=== PATIENT | female | born 1985 | race Caucasian/White ===

== ENCOUNTER 2017-08-07 14:47 | Emergency (ER) | payer OTHER ==
[~2017-08-07] VITALS: Ht 167.6 cm; Wt 93.5 kg
[2017-08-07 14:53] VITALS: Ht 167.6 cm; Wt 93.5 kg
[2017-08-07] MEDS ORDERED: ACETAMINOPHEN 325 MG TAB PO ONE (16:00)
[2017-08-07 16:02] LABS: BASOPHILS % 0.2 % (0.0-2.0); EOSINOPHILS % 0.3 % (0.0-7.0); HEMATOCRIT 40.3 % (37.0-47.0); HEMOGLOBIN 12.8 g/dl (12.0-16.0); LYMPHOCYTES # 1.8 10^3/ul (0.8-2.9); LYMPHOCYTES % 11.8 % (15.0-51.0); MEAN CORPUSCULAR HEMOGLOBIN 25.5 pg (29.0-33.0); MEAN CORPUSCULAR HGB CONC 31.8 g/dl (32.0-37.0); MEAN CORPUSCULAR VOLUME 80.4 fl (82.0-101.0); MEAN PLATELET VOLUME 10.2 fl (7.4-10.4); MONOCYTE # 0.5 10^3/ul (0.3-0.9); MONOCYTES % 3.5 % (0.0-11.0); NEUTROPHILS % 83.8 % (39.0-77.0); PLATELET COUNT 244 10^3/UL (140-415); RED BLOOD COUNT 5.01 10^6/ul (4.20-5.40); RED CELL DISTRIBUTION WIDTH 16.6 % (11.5-14.5); WHITE BLOOD COUNT 15.4 10^3/ul (4.8-10.8)
[2017-08-07 16:15] LABS: ADD UMIC YES; UR ASCORBIC ACID NEGATIVE (NEGATIVE); UR BACTERIA FEW /HPF (NONE SEEN); UR BILIRUBIN (Dip) NEGATIVE (NEGATIVE); UR BLOOD (Dip) NEGATIVE (NEGATIVE); UR CLARITY SLIGHTLY CLOUDY (CLEAR); UR COLOR YELLOW (YELLOW); UR GLUCOSE (Dip) 1+ mg/dL (NEGATIVE); UR KETONES (Dip) 2+ mg/dL (NEGATIVE); UR LEUKOCYTE ESTERASE (Dip) NEGATIVE Leu/ul (NEGATIVE); UR MUCUS FEW /HPF (NONE SEEN); UR NITRITE (Dip) NEGATIVE (NEGATIVE); UR RBC 2 /HPF (0-5); UR SPECIFIC GRAVITY (Dip) 1.023 (1.003-1.030); UR SQUAMOUS EPITHELIAL CELL MODERATE /HPF (FEW); UR TOTAL PROTEIN (Dip) 3+ mg/dl (NEGATIVE); UR UROBILINOGEN (Dip) NEGATIVE (NEGATIVE)
--- NOTE | 2017-08-07 16:27 | RADRPT ---
PROCEDURE: OBSTETRICAL ULTRASOUND WITH ENDOVAGINAL IMAGES CLINICAL INDICATION: lower abdominal pain TECHNIQUE: Multiple sonographic images of the pelvis were obtained utilizing a transabdominal and endovaginal technique. The images were reviewed on a PACS workstation. COMPARISON: None. LMP: 04/17/1970 FINDINGS: The uterus appears to be bicornuate. There is a 5.8 cm subserosal fundal fibroid in the right horn of the uterus. There is a 3.8 cm anterior subserosal fibroid at the level of the mid body. There is a 3.3 cm subserosal fundal fibroid in the left horn of the uterus. There is a single live intrauterine in the right horn of the uterus with heart rate of 166 beats per minute and crown-rump length of 10.33 cm which is consistent with a gestational age of 16 weeks, 2 days . The estimated date of delivery by ultrasound is 01/20/2018 . The estimated gestational age by LMP is 16 weeks, 0 days . The estimated date of delivery by LMP is 01/22/2018 . The placenta is fundal in location. There is no evidence of a placenta previa or abruption. The right ovary measures 5.5 x 4.1 x 2.5 cm. The left ovary is not identified. There is normal vascu lar flow in the right ovary. No significant ovarian lesions are seen. No significant pelvic free fluid is identified. IMPRESSION: Single live intrauterine consistent with a gestational age of 16 weeks, 2 days . The estimated date of delivery is 01/20/2018 . Dating by ultrasound is within 2 days of dating by LMP. A possible bicornuate uterus is identified with the gestation in the right horn. Fundal placenta without evidence of placenta previa or abruption. Nonvisualization of the left ovary. RPTAT: EE Physician Michelle Date Time Electronically viewed and signed by Physician Michelle on 08/07/2017 16:27 /
[2017-08-07 20:39] VITALS: BP 134/85; PULSE 102; RESP 18; TEMP 99.3
--- NOTE | 2017-08-07 20:56 | ERD ---
ER Documentation Chief Complaint Date/Time DATE: 08/07/17 TIME: 20:48 Chief Complaint RIGHT LOWER QUADRANT PAIN RADIATING TO BACK,16 WEEKS ,NO BLEEDING HPI 32-year-old female patient who is a with a past medical history of type 2 diabetes, fibroids, bicornate uterus, 12 years of remission from non-Hodgkin's lymphoma presents the ED complaining of right lower quadrant abdominal pain last night. Patient reports that it feels intense and comes in waves. Describes the pain as sharp and rates the pain a 10 out of 10. States that it does radiate to her right-sided back. Reports that her last menstruation was on April 17, 2017. States that she is taking insulin, calcium, metformin and iron. That when she did urinate, she had a yellow clot. Denies any vaginal bleeding, vaginal discharge, dysuria, urgency, frequency, hematuria. ROS All systems reviewed and are negative except as per history of present illness. Medications Home Meds Reported Medications Insulin Regular, Human (Humulin R) 100 Unit/1 Ml Vial, 100 UNIT IJ, VIAL 08/08/17 Insulin NPH Human Isophane (Humulin N) 100 Unit/1 Ml Vial, 100 UNIT SQ, VIAL 08/08/17 Insulin NPH Human Isophane (Humulin N) 100 Unit/1 Ml Vial, 100 UNIT SQ, VIAL 08/08/17 Allergies Allergies: Coded Allergies: No Known Allergy (Unverified , 08/07/17) PMhx/Soc Medical and Surgical Hx: pt denies Medical Hx, pt denies Surgical Hx History of Surgery: No Anesthesia Reaction: No Hx Neurological Disorder: No Hx Respiratory Disorders: No Hx Cardiac Disorders: No Hx Psychiatric Problems: No Hx Miscellaneous Medical Probl: Yes (Non-Hodgkins Lymphoma, Diabetes) Physical Exam Vitals Vital Signs Date Time Temp Pulse Resp B/P Pulse Ox O2 Delivery O2 Flow Rate FiO2 08/07/17 20:39 99.3 102 18 134/85 98 Room Air 08/07/17 14:53 99.6 99 18 138/93 98 Physical Exam Const: [id number], well-nourished. In no acute distress. Smiling and playful. Head: Atraumatic, normocephalic Eyes: Normal Conjunctiva without injection. No purulent discharge. PERRL. EOMI ENT: Normal external ear. Ear canal without erythema. Tympanic membrane pearly duncan without effusion or bulging. Nasal canal clear with normal turbinates. Moist oropharynx without tonsillar exudates. Non-erythematous pharynx. Uvula midline. No drooling. No trismus. Neck: Full range of motion. No meningismus. No cervical lymphadenopathy. Resp: Clear to auscultation bilaterally. No wheezing, rhonchi, rales, or crackles. No accessory muscle use. No retractions. No stridor at rest. Cardio: Regular rate and rhythm. No murmurs, rubs or gallops. Abd: Soft, non tender, non distended. Normal bowel sounds. No palpable masses. Skin: No petechiae or rashes Ext: No cyanosis, or edema. Neur: Awake and alert. Psych: Normal Mood and Affect Result Diagram: 08/07/17 1550 08/07/17 1530 Results 24 hrs Laboratory Tests Test 08/07/17 15:30 08/07/17 15:45 08/07/17 15:50 08/07/17 20:46 Sodium Level 137mmol/L Potassium Level 4.4mmol/L Chloride Level 108mmol/L Carbon Dioxide Level 19mmol/L Anion Gap 14 Blood Urea Nitrogen 5mg/dl Creatinine 0.54mg/dl Glucose Level 116mg/dl Calcium Level 9.1mg/dl Total Bilirubin 0.4mg/dl Direct Bilirubin 0.00mg/dl Indirect Bilirubin 0.4mg/dl Aspartate Amino Transf (AST/SGOT) 62IU/L Alanine Aminotransferase (ALT/SGPT) 18IU/L Alkaline Phosphatase 84IU/L Total Protein 7.2g/dl Albumin 3.7g/dl Globulin 3.50g/dl Albumin/Globulin Ratio 1.05 Urine Color YELLOW Urine Clarity SLIGHTLY CLOUDY Urine pH 5.0 Urine Specific [place] 1.023 Urine Ketones 2+mg/dL Urine Nitrite NEGATIVEmg/dL Urine Bilirubin NEGATIVEmg/dL Urine Urobilinogen NEGATIVEmg/dL Urine Leukocyte Esterase NEGATIVELeu/ul Urine Microscopic RBC 2/HPF Urine Microscopic WBC 5/HPF Urine Squamous Epithelial Cells MODERATE/HPF Urine Bacteria FEW/HPF Urine Mucus FEW/HPF Urine Hemoglobin NEGATIVEmg/dL Urine Glucose 1+mg/dL Urine Total Protein 3+mg/dl White Blood Count 15.410^3/ul Red Blood Count 5.0110^6/ul Hemoglobin 12.8g/dl Hematocrit 40.3% Mean Corpuscular Volume 80.4fl Mean Corpuscular Hemoglobin 25.5pg Mean Corpuscular Hemoglobin Concent 31.8g/dl Red Cell Distribution Width 16.6% Platelet Count 25801^3/UL Mean Platelet Volume 10.2fl Neutrophils % 83.8% Lymphocytes % 11.8% Monocytes % 3.5% Eosinophils % 0.3% Basophils % 0.2% Nucleated Red Blood Cells % 0.0/100WBC Neutrophils # (Manual) 12.910^3/ul Lymphocytes # 1.810^3/ul Monocytes # 0.510^3/ul Eosinophils # 0.010^3/ul Basophils # 0.010^3/ul Nucleated Red Blood Cells # 0.010^3/ul Beta HCG, Quantitative 17757.0mIU/ml Bedside Glucose 122mg/dL Current Medications Medications (Trade) Dose Ordered Sig/Kristofer Route PRN Reason Start Time Stop Time Status Last Admin Dose Admin Acetaminophen (Tylenol Tab) 650 mg ONCE ONCE PO 08/07/17 16:00 08/07/17 16:01 DC 08/07/17 15:40 Procedures/MDM This is a 32-year-old female patient with a past medical history of type 2 diabetes, fibroids, bicornuate uterus, 12 years of remission from non-Hodgkin's lymphoma presents to the ED complaining of right lower quadrant abdominal pain. Patient is afebrile nontoxic appearing. Patient has normal vital signs. An ultrasound, beta-hCG, CBC, type and RH, UA was ordered to evaluate patient. CBC: Leukocytosis of 15.4. No anemia CMP: No e/o alkalosis, acidosis, renal disease Urine: No elevation in nitrites, leukocyte esterase, hematuria. No evidence of UTI Rh: O positive No indication for Rhogam at this time. beta Hc Accucheck: 122 PROCEDURE: OBSTETRICAL ULTRASOUND WITH ENDOVAGINAL IMAGES CLINICAL INDICATION: lower abdominal pain TECHNIQUE: Multiple sonographic images of the pelvis were obtained utilizing a transabdominal and endovaginal technique. The images were reviewed on a PACS workstation. COMPARISON: None. LMP: 04/17/1970 FINDINGS: The uterus appears to be bicornuate. There is a 5.8 cm subserosal fundal fibroid in the right horn of the uterus. There is a 3.8 cm anterior subserosal fibroid at the level of the mid body. There is a 3.3 cm subserosal fundal fibroid in the left horn of the uterus. There is a single live intrauterine in the right horn of the uterus with heart rate of 166 beats per minute and crown-rump length of 10.33 cm which is consistent with a gestational age of 16 weeks, 2 days . The estimated date of delivery by ultrasound is 01/20/2018 . The estimated gestational age by LMP is 16 weeks, 0 days . The estimated date of delivery by LMP is 01/22/2018 . The placenta is fundal in location. There is no evidence of a placenta previa or abruption. The right ovary measures 5.5 x 4.1 x 2.5 cm. The left ovary is not identified. There is normal vascular flow in the right ovary. No significant ovarian lesions are seen. No significant pelvic free fluid is identified. IMPRESSION: Single live intrauterine consistent with a gestational age of 16 weeks , 2 days . The estimated date of delivery is 01/20/2018 . Dating by ultrasound is within 2 days of dating by LMP. A possible bicornuate uterus is identified with the gestation in the right horn. Fundal placenta without evidence of placenta previa or abruption. Nonvisualization of the left ovary. PROCEDURE: MRI ABDOMEN WITHOUT CONTRAST CLINICAL INDICATION: 32 years of age, female , right lower quadrant pain. 4 months . . COMPARISON: First trimester ultrasound August 07, 2017 TECHNIQUE: An MRI study was performed without intravenous contrast. The following sequences were performed: Axial and coronal SS-T2 FSE, axial SS-T2FSE with fat suppression, axial T1 gradient echo in and out of phase, axial DWI, and axial T1 gradient echo with fat suppression. FINDINGS: Lung bases: Unremarkable Liver: No focal liver lesions are identified. Evaluation for steatosis is limited for technical reasons. Gall Bladder: There is a 2.4 cm gallstone. Negative for evidence of acute cholecystitis. Bile Ducts: Negative for intrahepatic or extrahepatic biliary duct dilatation. Pancreas: Normal noncontrast appearance. Spleen: Normal with an accessory spleen. Adrenal glands: 1.1 cm right adrenal nodule is likely benign. Left adrenal gland is normal. Kidneys: Right kidney is normal size and signal intensity without hydronephrosis. There is minimal perinephric fat stranding. Left kidney is absent. Vasculature: Aorta is normal caliber. Lymph nodes: No abnormal enlarged lymph nodes. Bowel: Bowel loops are decompressed and appear normal. There is a non-inflamed appendix in the right lower quadrant. Peritoneal space: Small volume free pelvic fluid. Pelvic organs: Evaluation of the pelvis is limited. There is a gravid uterus with an intrauterine . 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 The is situated in the right horn with an anterior placenta. The left horn is identified in the left lower quadrant. There is a 5.4 cm exophytic mass arising from the anterior wall of the right uterine horn and there is a 4.6 cm exophytic mass arising from the left uterine horn that likely represent pedunculated fibroids. They are both isointense to myometrium without evidence of internal hemorrhage. Ovaries appear normal. There is a small amount of fluid around the left ovary. Abdominal wall: Unremarkable Musculoskeletal: No suspicious abnormality. IMPRESSION: Normal appendix. Negative for evidence of appendicitis. Nonspecific right perinephric fat stranding without right hydronephrosis. Recommend correlation with urinalysis to rule out urinary tract infection. Left renal agenesis. Cholelithiasis without evidence of acute cholecystitis or biliary obstruction. Gravid uterus is incompletely evaluated. 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 The is situated in the right horn. There are suspected pedunculated fibroids arising from both horns of the uterus that are normal signal intensity without internal hemorrhage. Small volume free pelvic fluid. Findings were discussed with Brooke GALLOWAY by Dr. Elizabeth Chu on August 07, 2017 at 09:15 p.m.. Patient is 16 weeks with a single IUP seen on ultrasound. No appendicitis noted. After the workup was done here in the ED, patient reported that she was also seen at [facility] and was diagnosed with an open cervix with a bulging amniotic sac through the cervical canal. This case was discussed with the laborist on-call, Dr. Velez who agreed to admit the patient at this time. She stated that patient should be seen at the OB triage. Patient will be discharged here in the ED and our nursing staff will assist the patient to OB triage for further evaluation and treatment by Dr. Velez for impending . Departure Diagnosis: Primary Impression: Right lower quadrant abdominal pain Additional Impression: Incompetent cervix Condition: Stable Patient Instructions: : Your Second Trimester Changes, Adapting to : Second Trimester, Monitoring Your Blood Sugar During Referrals: [facility] YOU HAVE RECEIVED A MEDICAL SCREENING EXAM AND THE RESULTS INDICATE THAT YOU DO NOT HAVE A CONDITION THAT REQUIRES URGENT TREATMENT IN THE EMERGENCY DEPARTMENT. FURTHER EVALUATION AND TREATMENT OF YOUR CONDITION CAN WAIT UNTIL YOU ARE SEEN IN YOUR DOCTORS OFFICE WITHIN THE NEXT 1-2 DAYS. IT IS YOUR RESPONSIBILITY TO MAKE AN APPOINTMENT FOR FOLOW-UP CARE. IF YOU HAVE A PRIMARY DOCTOR --you should call your primary doctor and schedule an appointment IF YOU DO NOT HAVE A PRIMARY DOCTOR YOU CAN CALL OUR PHYSICIAN REFERRAL HOTLINE AT IF YOU CAN NOT AFFORD TO SEE A PHYSICIAN YOU CAN CHOSE FROM THE FOLLOWING [facility] [address] [facility] [address] [facility] [facility] [address] [facility] [address] [facility] [address] [facility] [address] [facility]. [facility] YOU HAVE RECEIVED A MEDICAL SCREENING EXAM AND THE RESULTS INDICATE THAT YOU DO NOT HAVE A CONDITION THAT REQUIRES URGENT TREATMENT IN THE EMERGENCY DEPARTMENT. FURTHER EVALUATION AND TREATMENT OF YOUR CONDITION CAN WAIT UNTIL YOU ARE SEEN IN YOUR DOCTORS OFFICE WITHIN THE NEXT 1-2 DAYS. IT IS YOUR RESPONSIBILITY TO MAKE AN APPOINTMENT FOR FOLOW-UP CARE. IF YOU HAVE A PRIMARY DOCTOR --you should call your primary doctor and schedule and appointment IF YOU DO NOT HAVE A PRIMARY DOCTOR YOU CAN CALL OUR PHYSICIAN REFERRAL HOTLINE AT . IF YOU CAN NOT AFFORD TO SEE A PHYSICIAN YOU CAN CHOSE FROM THE FOLLOWING [facility] INSTITUTIONS: [facility] [address] [place] [address] [facility] [address] [place] [address] [facility] [address] [place] [address] [facility] URGENT CARE/SPECIALTIES [employer] [place] [address] [facility] [address] [place] [address] OFFICE FAX , [address] [place] [address] [address] CAO, [place] [address] [place] [address] DR PATEL, [facility] [address], [address], [place] [address] [address] ADAMS, [facility] [address] [place] [address] [facility] [address] [place] [address] [phone] [facility] [address] - [address] HERRERA, LILA [address], [facility] [address] [address] SAM, [place] [address] [facility]. [address], [place] [address] [address] LOPEZ, [facility] [address] [place], [place] [id number] [facility] Hours: 8:00 am - 5:00 pm Additional Instructions: You have found to have an open cervix at [facility]. You will be discharged from the ER and taken to follow up in the OB Triage unit for further evaluation and treatment by the laborist. Return to this facility if you are not improving as expected - fever, nausea, vomiting, diarrhea, vaginal bleeding, weakness, etc. BROOKE VALDERRAMA PA-C Aug 07, 2017 20:56
[2017-08-07 21:05] LABS: ALBUMIN 3.7 g/dl (3.3-4.9); ALBUMIN/GLOBULIN RATIO 1.05; BILIRUBIN,INDIRECT 0.4 mg/dl (0-1.1); BILIRUBIN,TOTAL 0.4 mg/dl (0.2-1.3); CALCIUM 9.1 mg/dl (8.4-10.2); CREATININE 0.54 mg/dl (0.44-1.00); POTASSIUM 4.4 mmol/L (3.5-5.1); TOTAL PROTEIN 7.2 g/dl (6.1-8.1)
--- NOTE | 2017-08-07 21:19 | RADRPT ---
PROCEDURE: MRI ABDOMEN WITHOUT CONTRAST CLINICAL INDICATION: 32 years of age, female , right lower quadrant pain. 4 months . . COMPARISON: First trimester ultrasound August 07, 2017 TECHNIQUE: An MRI study was performed without intravenous contrast. The following sequences were per formed: Axial and coronal SS-T2 FSE, axial SS-T2FSE with fat suppression, axial T1 gradient echo in and out of phase, axial DWI, and axial T1 gradient echo with fat suppression. FINDINGS: Lung bases: Unremarkable Liver: No focal liver lesions are identified. Evaluation for steatosis is limited for technical reas ons. Gall Bladder: There is a 2.4 cm gallstone. Negative for evidence of acute cholecystitis. Bile Ducts: Negative for intrahepatic or extrahepatic biliary duct dilatation. Pancreas: Normal noncontrast appearance. Spleen: Normal with an accessory spleen. Adrenal glands: 1.1 cm right adrenal nodule is likely benign. Left adrenal gland is normal. Kidneys: Right kidney is normal size and signal intensity without hydronephrosis. There is minimal perinephric fat stranding. Left kidney is absent. Vasculature: Aorta is normal caliber. Lymph nodes: No abnormal enlarged lymph nodes. Bowel: Bowel loops are decompressed and appear normal. There is a non-inflamed appendix in the righ t lower quadrant. Peritoneal space: Small volume free pelvic fluid. Pelvic organs: Evaluation of the pelvis is limited. There is a gravid uterus with an intrauterine pr egnancy. 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 The is situated in the right horn with an anterior placenta. The left horn is identi fied in the left lower quadrant. There is a 5.4 cm exophytic mass arising from the anterior wall of the right uterine horn and there is a 4.6 cm exophytic mass arising from the left uterine horn that likely represent pedunculated fibroids. They are both isointense to myometrium without evidence of i nternal hemorrhage. Ovaries appear normal. There is a small amount of fluid around the left ovary. Abdominal wall: Unremarkable Musculoskeletal: No suspicious abnormality. IMPRESSION: Normal appendix. Negative for evidence of appendicitis. Nonspecific right perinephric fat stranding without right hydronephrosis. Recommend correlation with urinalysis to rule out urinary tract infection. Left renal agenesis. Cholelithiasis without evidence of acute cholecystitis or biliary obstruction. Gravid uterus is incompletely evaluated. There is a uterine anomaly that either represents uterine d idelphys or a complete bicornuate uterus. The is situated in the right horn. There are maryann pected pedunculated fibroids arising from both horns of the uterus that are normal signal intensity without internal hemorrhage. Small volume free pelvic fluid. Findings were discussed with Brooke GALLOWAY by Dr. Elizabeth Chu on August 07, 2017 at 09:15 p.m.. RPTAT: HCTS Benson Chu Physician Date Time Electronically viewed and signed by Benson Chu Physician on 08/07/2017 21:18 CS/
[2017-08-08] MEDS ORDERED: INSU100V3 IJ (00:31)
[2017-08-08] MEDS ORDERED: NPH,100V SQ (00:31)
== END 2017-08-07 21:08 | disposition home or self-care (01) ==
LOC: FTE 14:47
DX: O34.32 Maternal care for cervical incompetence, second trimester (principal); R10.31 Right lower quadrant pain; O24.112 Pre-existing type 2 diabetes mellitus, in pregnancy, second trimester; E11.9 Type 2 diabetes mellitus without complications; R10.2 Pelvic and perineal pain; Z3A.16 16 weeks gestation of pregnancy; Z79.4 Long term (current) use of insulin; Z79.84 Long term (current) use of oral hypoglycemic drugs
CPT/HCPCS: 36415; 74181; 76805; 80053; 81001; 82962; 84702; 85025; 86900; 86901; Z7502; Z7610

== ENCOUNTER 2017-08-07 21:18 | Inpatient (IN) | payer OTHER ==
[~2017-08-07] VITALS: Ht 160 cm; Wt 93.0 kg
[2017-08-07 22:30] VITALS: Ht 160 cm; Wt 93.0 kg
[2017-08-07] MEDS ORDERED: HYDROCODONE/APAP (5/325) TAB PO PRN (23:00)
[2017-08-07] MEDS ORDERED: MISOPROSTOL 200 MCG TAB PR PRN (23:00)
[2017-08-07] MEDS ORDERED: OXYTOCIN 30 UNITS/LR 500 ML IV PRN (23:00)
[2017-08-07] MEDS ORDERED: LACTATED RINGER'S 1,000 ML IV PRN ×2 (23:00)
[2017-08-07] MEDS ORDERED: LIDOCAINE 1% (MPF) 30 ML INJ INJ PRN (23:00)
[2017-08-07] MEDS ORDERED: ACETAMINOPHEN 325 MG TAB PO PRN (23:00)
[2017-08-07] MEDS ORDERED: METHYLERGONOVINE 0.2 MG INJ IM PRN (23:00)
[2017-08-07] MEDS ORDERED: CARBOPROST 250 MCG INJ IM PRN (23:00)
[2017-08-07] MEDS ORDERED: IBUPROFEN 600 MG TAB PO PRN (23:00)
[2017-08-08] MEDS ORDERED: INSU100V3 IJ (00:31)
[2017-08-08] MEDS ORDERED: NPH,100V SQ (00:31)
[2017-08-08 01:29] LABS: INR 0.97; PROTIME 12.9 Sec (12.2-14.2)
[2017-08-08 01:30] LABS: PARTIAL THROMBOPLASTIN TIME 31.2 Sec (25.0-35.0)
[2017-08-08] MEDS ORDERED: BUTORPHANOL 2 MG INJ IV PRN (02:00)
[2017-08-08] MEDS ORDERED: OXYTOCIN 30 UNITS/LR 500 ML IV SCH ×2 (02:50→03:30)
[2017-08-08] MEDS ORDERED: DIAZEPAM 5 MG/ML SYG IV ONE (03:30)
--- NOTE | 2017-08-08 04:54 | HP ---
Date/Time of Note Date/Time of Note DATE: 08/08/17 TIME: 04:31 OB - History Hx of Present Free Text/Dictation 32 y.o primigravida EDC 01/22/18 at 16w1d ,was bought to triage via ER where she was evaluated for impending . Ealrier the day ,she was at [facility] where she had U/S revealed 16w live with cervix open ,bulging amniotic sac though the cervical canal.sent home But later night she came to [facility] with modrate pelvic pain especially on RLQ , U/ S still shows live at 16w2d with FHT 166 , poss bicornuate uterus with the gestation on rt horn with multiple subserosal fibroids. admitted for further care for impending . Estimated Due Date: Jan 22, 2018 : 1 Para: 0 Spontaneous : 0 Therapeutic : 0 Care: Limited Care Ultrasounds: No ultrasounds, Abnormal US findings, Other Obstetrical Complications: Other Medical Complications: Genitourinary, Other (non hodgkin's lymphoma , IDDM) Past Family/Social History * Past Medical, Surgical, Family and Obstetric Histories reviewed from chart. Blood Type: Unknown Rubella: unknown RPR/VDRL: Unknown GBS Status: Unknown HBsAG: Unknown OB Admission Exam Physical Exam HEENT: WNL Heart: Rhythm Normal Lungs: Clear, Equal Abdomen: WNL Extremities: Edema Reflexes: Normal Cervical Dilatation: other Effacement: Other Station: Other Membranes: Intact Amniotic Fluid: Unevaluable Intensity: Moderate Last 72 hourBlood Glucose Bedside Glucose - 72 Hours Test 08/08/17 02:42 Bedside Glucose 136mg/dL (70-220) Last 72 hours Lab Results CBC & BMP 08/08/17 00:59 OB Assessment/Plan Other Assessment: IUP 16w2d impending miscarriage Plan: Expectant Management VIKASH VALLEJO MD Aug 08, 2017 04:47
--- NOTE | 2017-08-08 05:03 | LDN ---
Date/Time of Note Date/Time of Note DATE: 08/08/17 TIME: 04:54 Delivery Summary 32 y.o primigravida with bicornuated uterus,multiple fibroids expelled fetus in amniotic sac which was intact with placenta together male , 390gm no movement no respiration no FHT no tone color blue Weeks of Gestation 16w2d Placenta Delivered: Spontaneously Meconium: none Episiotomy: No Estimated blood loss: 100 Sponge & Needle done & correct: Yes All needle counts correct: Yes Any foreign bodies felt in the: No Problems: Infant Delivery Information Sex Sex: male Apgars 1 Minute: 0 5 Minute: 0 10 Minute: 0 Suctioning Nose & mouth suctioned at bigg: No Delee suction performed: No Umbilical Cord Cord presentations: no nuchal cord Cord Blood was obtained: No VIKASH VALLEJO MD Aug 08, 2017 05:03
[2017-08-08] MEDS ORDERED: MISOPROSTOL 200 MCG TAB PR PRN (07:00)
[2017-08-08] MEDS ORDERED: CARBOPROST 250 MCG INJ IM PRN (07:00)
[2017-08-08] MEDS ORDERED: OXYCODONE/ASPIRIN (4.88/325) TAB PO PRN (07:00)
[2017-08-08] MEDS ORDERED: NACL 0.9% 3 ML SYG IV SCH (07:00)
[2017-08-08] MEDS ORDERED: METHYLERGONOVINE 0.2 MG INJ IM PRN (07:00)
[2017-08-08] MEDS ORDERED: ZOLPIDEM 5 MG TAB PO PRN (07:00)
[2017-08-08] MEDS ORDERED: OXYTOCIN 30 UNITS/LR 500 ML IV PRN (07:00)
[2017-08-08] MEDS: OXYCODONE/ASPIRIN (4.88/325) TAB PO PRN ×2 (07:10→11:58)
[2017-08-08 08:00] VITALS: BP 101/68; PULSE 97; RESP 18
--- NOTE | 2017-08-08 08:26 | PN ---
Date/Time of Note Date/Time of Note DATE: 08/08/17 TIME: 08:25 OB Subjective Subjective Subjective Doing well.Resting in bed having breakfast. OB Objective Objective Objective Afebrile. Glucose 120.Normal lochia HEENT: WNL Heart: Rhythm Normal Lungs: Clear Abdomen: WNL Extremities: Normal BJ BOONE MD Aug 08, 2017 08:26
[2017-08-08 11:46] LABS: BASOPHILS % 0.3 % (0.0-2.0); EOSINOPHILS # 0.1 10^3/ul (0.0-0.5); EOSINOPHILS % 0.5 % (0.0-7.0); HEMATOCRIT 37.5 % (37.0-47.0); HEMOGLOBIN 11.6 g/dl (12.0-16.0); LYMPHOCYTES # 1.7 10^3/ul (0.8-2.9); LYMPHOCYTES % 11.6 % (15.0-51.0); MEAN CORPUSCULAR HEMOGLOBIN 25.2 pg (29.0-33.0); MEAN CORPUSCULAR HGB CONC 30.9 g/dl (32.0-37.0); MEAN CORPUSCULAR VOLUME 81.5 fl (82.0-101.0); MEAN PLATELET VOLUME 10.7 fl (7.4-10.4); MONOCYTE # 0.6 10^3/ul (0.3-0.9); MONOCYTES % 4.1 % (0.0-11.0); NEUTROPHILS % 83.2 % (39.0-77.0); PLATELET COUNT 235 10^3/UL (140-415); RED CELL DISTRIBUTION WIDTH 17.2 % (11.5-14.5); WHITE BLOOD COUNT 14.3 10^3/ul (4.8-10.8)
[2017-08-08] MEDS: SENNA/DOCUSATE NA (8.6MG/50MG) TAB PO SCH ×2 (11:58→20:58)
[2017-08-08] MEDS: IBUPROFEN 600 MG TAB PO SCH ×3 (12:00→23:41)
[2017-08-08 12:10] VITALS: BP 121/66; PULSE 92; RESP 18
[2017-08-08] MEDS ORDERED: GLUCOSE GEL 15 GRAM TUBE BUCCAL PRN (15:00)
[2017-08-08] MEDS ORDERED: GLUCOSE GEL 15 GRAM TUBE PO PRN ×2 (15:00)
[2017-08-08] MEDS ORDERED: DEXTROSE 50% 50 ML SYRINGE IV PRN ×2 (15:00)
[2017-08-08] MEDS ORDERED: GLUCAGON 1 MG INJ IM PRN (15:00)
[2017-08-08 17:20] VITALS: BP 109/59; PULSE 90; RESP 18
[2017-08-08] MEDS: metFORMIN (XR) 500 MG TAB PO SCH (19:06)
[2017-08-08] MEDS: INSULIN ASPART [NOVOLOG] 3 ML PEN SC SCH ×2 (19:09→21:00)
[2017-08-08 19:52] VITALS: BP 129/78; PULSE 93; RESP 18
[2017-08-08 23:30] VITALS: BP 117/74; PULSE 85; RESP 16
[2017-08-09] MEDS ORDERED: ACCU-CHEK XX SCH ×2 (02:00)
[2017-08-09 03:40] VITALS: BP 120/71; PULSE 84; RESP 16
[2017-08-09] MEDS: OXYCODONE/ASPIRIN (4.88/325) TAB PO PRN (04:38)
[2017-08-09] MEDS: IBUPROFEN 600 MG TAB PO SCH ×2 (06:00→11:48)
[2017-08-09 07:10] LABS: BASOPHILS % 0.4 % (0.0-2.0); EOSINOPHILS # 0.3 10^3/ul (0.0-0.5); EOSINOPHILS % 2.8 % (0.0-7.0); HEMATOCRIT 37.1 % (37.0-47.0); HEMOGLOBIN 11.5 g/dl (12.0-16.0); LYMPHOCYTES # 1.6 10^3/ul (0.8-2.9); LYMPHOCYTES % 16.3 % (15.0-51.0); MEAN CORPUSCULAR HEMOGLOBIN 25.1 pg (29.0-33.0); MEAN PLATELET VOLUME 10.4 fl (7.4-10.4); MONOCYTE # 0.5 10^3/ul (0.3-0.9); MONOCYTES % 5.3 % (0.0-11.0); NEUTROPHILS % 74.7 % (39.0-77.0); PLATELET COUNT 218 10^3/UL (140-415); RED BLOOD COUNT 4.58 10^6/ul (4.20-5.40); RED CELL DISTRIBUTION WIDTH 16.7 % (11.5-14.5); WHITE BLOOD COUNT 9.7 10^3/ul (4.8-10.8)
[2017-08-09] MEDS: INSULIN ASPART [NOVOLOG] 3 ML PEN SC SCH ×2 (07:35→11:30)
[2017-08-09] MEDS: metFORMIN (XR) 500 MG TAB PO SCH (07:53)
[2017-08-09 07:56] VITALS: BP 119/73; PULSE 82; RESP 16
[2017-08-09] MEDS: SENNA/DOCUSATE NA (8.6MG/50MG) TAB PO SCH (09:00)
[2017-08-09 09:32] LABS: RUBELLA ANTIBODY - IGG 1.81 index
--- NOTE | 2017-08-09 14:21 | PD.PPDC ---
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
--- NOTE | 2017-08-09 14:43 | DS ---
Date/Time of Note Date/Time of Note DATE: 08/09/17 TIME: 14:41 Obstetrical Discharge Record Final Diagnosis Final Diagnosis: delivered Other Final Diagnosis s/p second trimester miscarriage aat 16weeks Condition on Discharge Physical Assessment Last Vitals: vss afebrile Voiding: Yes Bowel Movement: Yes Breast: Soft, non-tender Fundus: Firm Calf Tenderness: No Patient Condition: Stable VIKASH VALLEJO MD Aug 09, 2017 14:43
[2017-08-10] MEDS ORDERED: DIPHTH/TET/ACEL PERTUSS (ADULT) 0.5 ML VIAL IM* ONE (09:00)
== END 2017-08-09 15:06 | disposition home or self-care (01) | DRG 775 ==
LOC: OBT 21:18 → L-D 21:19 → OBT 22:30 → L-D 22:30
PROVIDERS: ADMIT Specialist; ATTEND Specialist
PROC: 10E0XZZ Delivery of Products of Conception, External Approach (ICD-10-PCS; principal; 2017-08-08)
DX: O60.13X0 Preterm labor second trimester with preterm delivery third trimester, not applicable or unspecified (principal); O34.12 Maternal care for benign tumor of corpus uteri, second trimester; Z3A.16 16 weeks gestation of pregnancy; Z37.1 Single stillbirth
CPT/HCPCS: 82947; 82962; 85025; 85610; 85730; 86592; 86762; 86850; 86900; 86901; 87340; 88305; G0463; J0595; J1815; J2590; J3360

== ENCOUNTER 2019-02-18 09:49 | Day surgery (SDC) | payer OTHER ==
[2019-02-16 16:36] VITALS: Ht 167.6 cm; Wt 86.8 kg
[2019-02-18] VITALS (14 sets, daily range): BP systolic 119–141; BP diastolic 70–95; PULSE 88–102; RESP 12–18
[~2019-02-18] VITALS: Ht 167.6 cm; Wt 86.8 kg
[~2019-02-18 09:49] MED LIST: BENA10TA4 PO; CEFAZOLIN 2 GM/50 ML (PMX) 50 ML IVPB ONE; FOLI-49 PO; GLIM4TAB PO; SITA1TAB5 PO; SOD CHLORIDE 0.9% 1,000 ML IV SCH
[2019-02-18] MEDS ORDERED: GLIM4TAB PO (10:39)
--- NOTE | 2019-02-18 13:12 | PREAC ---
Date/Time of Note Date/Time of Note DATE: 02/18/19 TIME: 13:10 Anesthesia Eval and Record Evaluation Time Pre-Procedure Interview DATE: 02/18/19 TIME: 13:10 Age 33 Sex female NPO: 8 hrs Preoperative diagnosis SYMPTOMATIC CHOLELITHIASIS Planned procedure LAP HARISH Past Medical History Past Medical History: Includes Endo: Diabetes GI: Obesity Heme: Other (NON HODGKIN LYMPHOMA) Surgery & Anesthesia Issues No known issue Meds Anticoagulation: No Beta Aleyda within 24 hr: No Reason Beta Aleyda not given: Pt. not on B-Aleyda Reported Medications Glimepiride* (Glimepiride*) 4 Mg Tablet, 4 MG PO WITH BREAKFAST DINNE, TAB 02/18/19 Folic Acid* (Folic Acid*) 1 Mg Tablet, 1 MG PO DAILY, TAB 02/16/19 Benazepril Hcl* (Benazepril Hcl*) 10 Mg Tablet, 10 MG PO DAILY, #30 TAB 02/16/19 Sitagliptin Phos/Metformin HCl (Janumet 50-1,000 mg Tablet) 1 Each Tablet, 1 EACH PO BID, TAB 02/16/19 Discontinued Reported Medications Glimepiride* (Glimepiride*) 4 Mg Tablet, 4 MG PO WITH BREAKFAST PRN for bid, TAB 02/16/19 Insulin Regular, Human (Humulin R) 100 Unit/1 Ml Vial, 100 UNIT IJ, VIAL 08/08/17 Insulin NPH Human Isophane (Humulin N) 100 Unit/1 Ml Vial, 100 UNIT SQ, VIAL 08/08/17 Insulin NPH Human Isophane (Humulin N) 100 Unit/1 Ml Vial, 100 UNIT SQ, VIAL 08/08/17 Current Medications Sodium Chloride 1,000 ml @ 75 mls/hr [id number] IV ; Start 02/18/19 at 07:00 Meds reviewed: Yes Allergies Coded Allergies: shrimp (Verified Allergy, Unknown, (raw shrimp) , lips tingle and red, 02/18/19) Allergies Reviewed: Yes Labs/Studies Labs Reviewed: Reviewed by anesthesiologist Result Diagram: 02/18/19 1102 02/18/19 1102 Laboratory Tests 02/18/19 11:02 test: Negative Pre-procedure Exam Last vitals Vital Signs Date Temp Pulse Resp B/P (MAP) Pulse Ox O2 O2 Flow FiO2 Time Delivery Rate 02/18/19 98.7 102 16 131/70 100 Room Air 11:15 (90) Airway: Adequate mouth opening, Adequate thyromental dist Mallampati: Mallampati II Teeth: Normal Lung: Normal Heart: Normal ASA Physical Status ASA physical status: 2 Emergency: None Planned Anesthetic General/MAC: ETT Nerve block: TAP (bilateral) Planned Pain Management Single shot nerve block, Parenteral pain med Pre-operative Attestations Prior to commencing anesthesia and surgery, the patient was re-evaluated, there was verification of: *The patient's identity *The results of appropriate recent lab work and preoperative vital signs *The above evaluation not changing prior to induction *Anesthetic plan, risk benefits, alternative and complications discussed with patient/family; questions answered; patient/family understands, accepts and wishes to proceed. Jaguar Sykes M.D. Feb 18, 2019 13:12
[2019-02-18] MEDS ORDERED: OXYCODONE/ACETAMINOPHEN (5/325) TAB PO PRN ×2 (13:30)
[2019-02-18] MEDS ORDERED: ALBUTEROL 0.083% (NEB) 2.5 MG/3 ML AMP HHN PRN (13:30)
[2019-02-18] MEDS ORDERED: MIDAZOLAM 1 MG/ML 2 ML INJ IV PRN (13:30)
[2019-02-18] MEDS ORDERED: TRIMETHOBENZAMIDE 100 MG/ML VIAL IM PRN (13:30)
[2019-02-18] MEDS ORDERED: FENTAnyl 50 MCG/ML VIAL IV PRN ×3 (13:30)
[2019-02-18] MEDS ORDERED: IPRATROPIUM (NEB) 0.5 MG/2.5 ML AMP HHN PRN (13:30)
[2019-02-18] MEDS ORDERED: hydrALAzine 20 MG INJ IV PRN (13:30)
[2019-02-18] MEDS ORDERED: MEPERIDINE 25 MG INJ IV PRN (13:30)
[2019-02-18] MEDS ORDERED: LABETALOL HCL 20MG INJ IV PRN (13:30)
[2019-02-18] MEDS ORDERED: HYDROmorphONE 1 MG/5 ML IV SYRINGE IV PRN ×3 (13:30)
[2019-02-18] MEDS ORDERED: EPHEDrine SULFATE 50 MG/5 ML SYG IV PRN (13:30)
[2019-02-18] MEDS ORDERED: DIPHENHYDRAMINE 50 MG INJ IV PRN (13:30)
[2019-02-18] MEDS ORDERED: ONDANSETRON 4 MG INJ IV PRN (13:30)
[2019-02-18] MEDS ORDERED: CEFAZOLIN 1 GM INJ ONE (13:31)
[2019-02-18] MEDS ORDERED: GLYCOPYRROLATE 0.4 MG INJ ONE (13:31)
[2019-02-18] MEDS ORDERED: PROPOFOL 20 ML ONE (13:31)
[2019-02-18] MEDS ORDERED: NEOSTIGMINE 3 MG/3 ML SYRINGE ONE (13:31)
[2019-02-18] MEDS ORDERED: ROCURONIUM 50 MG INJ ONE (13:31)
[2019-02-18] MEDS ORDERED: ONDANSETRON 4 MG INJ ONE (13:32)
[2019-02-18] MEDS ORDERED: MIDAZOLAM 1 MG/ML 2 ML INJ ONE (13:32)
[2019-02-18] MEDS ORDERED: DEXAMETHASONE 4 MG/ML 5 ML INJ ONE (13:32)
[2019-02-18] MEDS ORDERED: FENTAnyl 50 MCG/ML VIAL ONE (13:32)
[2019-02-18] MEDS ORDERED: ROPIVACAINE 0.5 % 30 ML VIAL ONE (13:34)
[2019-02-18] MEDS ORDERED: KETOROLAC 30 MG INJ ONE (14:27)
--- NOTE | 2019-02-18 14:28 | OPR ---
Date/Time of Note Date/Time of Note DATE: 02/18/19 TIME: 14:25 Operative Report Procedure Date: Feb 18, 2019 Preoperative Diagnosis symptomatic gallstones Postoperative Diagnosis same Operation/Procedure Performed 1. laparoscopic cholecystectomy 2. subcutaneous local anesthesia Surgeon see signature line Racking Technician Jeremy El Anesthesia Type: general Estimated Blood Loss: 10 - 50 ml's Transfusion none Specimen gallbladder Grafts/Implants none Complications none Pt Condition Post Procedure: stable Indications This is a 33-year-old female with centimeter gallstones. She requests surgical excision of her gallbladder. Risks alternatives benefits and percent were discussed the patient. Potential complications including but not limited to bleeding infection intra-abdominal organ injury, bladder injury were discussed the patient. Need for additional potential operations were discussed the patient. Patient expressed understanding and consents to the operation. Procedure Description The patient is taken to the OR and prepped and draped in usual sterile fashion. Surgical time was performed. IV antibiotics given. Infraumbilical incision was made transversely with a 15 blade. Dissection with cautery was carried down to the fascia. The fascia was grasped with Pearl's and divided with curved Martin scissors. 0 Vicryl U stitch was placed into the fascia. Ozuna trocar was introduced. Pneumoperitoneum is established. Midepigastric 12 mm optical trochars placed under direct visualization. Right upper quadrant upper flank 5 mm optical trochars were placed under direct position. Upon initial inspection there are some adhesions to the gallbladder which were taken down bluntly. The gallbladder was grasped the fundus and retracted in a lateral cephalad direction. [place] graspers were used to identify the cystic duct and cystic artery. The critical view was established. The cystic duct is divided with 3 clips proximally clipped distal division was performed laparoscopic scissors. Cystic artery was divided 3 clips proximally clipped distal division was performed laparoscopic scissors. The gallbladder is taken of the gallbladder bed. Good hemostasis established in the gallbladder bed. The gallbladder is retrieved using Endo Catch bag. Ports removed under direct position. 0 Vicryl sutures tied down. Skin is closed and skin blossom. A tap block was provided by the anesthesiologist. Dry dressings were applied. Sukhjinder SHEIKH Feb 18, 2019 14:28
[2019-02-18] MEDS ORDERED: HYDROCODONE/APAP (5/325) TAB PO ONE (14:30)
--- NOTE | 2019-02-19 14:29 | PAC ---
Date/Time of Note Date/Time of Note DATE: 02/19/19 TIME: 14:29 Post-Anesthesia Notes Post-Anesthesia Note Last documented vital signs Vital Signs Date Temp Pulse Resp B/P (MAP) Pulse Ox O2 O2 Flow FiO2 Time Delivery Rate 02/18/19 97.5 18 140/87 99 Room Air 15:45 (104) 02/18/19 88 15:32 02/18/19 3.0 14:52 Activity: WNL Respiratory function: WNL Cardiovascular function: WNL Mental status: Baseline Pain reasonably controlled: Yes Hydration appropriate: Yes Nausea/Vomiting absent: Yes Jaguar Sykes M.D. Feb 19, 2019 14:29
== END 2019-02-18 16:30 | disposition home or self-care (01) ==
LOC: SDS 09:49
PROVIDERS: ATTEND Surgery
DX: K80.20 Calculus of gallbladder without cholecystitis without obstruction (principal); E11.9 Type 2 diabetes mellitus without complications; E66.9 Obesity, unspecified
CPT/HCPCS: 47562; 80053; 82962; 84703; 85025; 85610; 85730; 88304; J0690; J1100; J1170; J1885; J2175; J2250; J2405; J2710; J2795; J3010; Z7512; Z7610